=== PATIENT | female | born 1980 | race Caucasian/White ===

== ENCOUNTER 2016-11-29 21:37 | Emergency (ER) | payer OTHER ==
[~2016-11-29] VITALS: Ht 170.2 cm; Wt 73.6 kg
[~2016-11-29 21:37] MED LIST: ALPRAZOLAM0.25 M2; ATARAX,VISTARIL25 MG PO; ATARAX,VISTARIL50 MG PO; AZITHROMYCIN250 MG1 PO; BACTRIM,SEPT1 TABLET PO; BENTYL20 MG PO; BUSPAR10 MG; CARAFATE100 MG/ML PO; CIPRO500 MG PO; CITRATE OF MAG296 ML PO; CLEOCIN300 MG PO; CYCLOBENZAPR TAB 10M PO; DELTASONE20 M1 PO; DIAZEPAM10 MG PO; DICYCLOMINE HCL20 MG PO; DILAUDID2 MG PO; ENDOCET 5-3251 EACH PO; EPIPEN ADU0.3 MG/0.3 IM; EPIPEN IM; FLEXERIL10 MG PO; FLOMAX0.4 MG PO; FLUOXETINE HCL40 MG PO; HYDROCODON-ACE1 EAC8 PO; KLONOPIN1 MG PO; LAMICTAL100 MG PO; LAMICTAL150 M1 PO; LEVAQUIN500 MG PO; LEVOFLOXACIN500 MG PO; LIDODERM 5% P1 PATCH TD; LITHIUM; LITHIUM CARBON300 MG PO; MACROBID100 MG PO; MOTRIN600 MG PO; NAPROSYN500 MG PO; NOHOMEMEDS; OMEPRAZOLE40 M1 PO; PRAZOSIN HCL2 MG PO; PREMARIN0.3 MG PO; PRILOSEC40 MG PO; PROMETHAZINE HC25 M1 PO; PROZAC10 MG PO; PROZAC20 MG PO; Premarin PO; QUETIAPINE FUMA25 MG; RANITIDINE HCL150 MG PO; RYBIX ODT50 MG PO; SEROQUEL50 MG PO; TORADOL10 MG PO; VENTOLIN HFA18 GM IH; VICODIN ES 7.51 EAC1 PO; VICODIN,LORT1 TABLET PO; XANAX0.5 MG PO; XANAX1 MG PO; Xanax PO; ZANAFLEX4 M1 PO; ZANAFLEX4 MG PO; ZANTAC150 MG PO; ZOFRAN4 MG PO; [UNRECOGNIZED DRUG - OTHER] IM
[2016-11-29] MEDS ORDERED: PERCOCET 5/31 TABLET PO (22:48)
[2016-11-29] MEDS ORDERED: LAMICTAL100 MG PO (22:48)
[2016-11-29] MEDS ORDERED: VYVANSE40 MG PO (22:48)
[2016-11-29] MEDS ORDERED: TORADOL10 MG PO (23:35)
[2016-11-29] MEDS ORDERED: PROMETHAZINE HC25 M1 PO (23:35)
[2016-11-29 23:58] VITALS: BP 115/71
== END 2016-11-30 | disposition home or self-care (01) ==
LOC: EME 21:37
DX: S06.0X0A Concussion without loss of consciousness, initial encounter (principal); R11.0 Nausea; H53.149 Visual discomfort, unspecified; F17.200 Nicotine dependence, unspecified, uncomplicated; W22.09XA Striking against other stationary object, initial encounter
CPT/HCPCS: 99281; 99284; J2550

== ENCOUNTER 2017-10-07 15:35 | Observation (INO) | payer OTHER ==
[~2017-10-07] VITALS: Ht 170.2 cm; Wt 63.6 kg
[~2017-10-07 15:35] MED LIST changes: +PERCOCET 5/31 TABLET PO; +VYVANSE40 MG PO
[2017-10-07 16:06] LABS: HEMATOCRIT 38.9 % (36.0-46.0); MCH 31.3 PG (29.0-34.0); MCHC 34.7 G/DL (30.0-36.0); PLATELET COUNT 226 K/uL (156-360); RBC DIS.WIDTH-CV 11.7 % (11.8-14.6); RBC DIS.WIDTH-SD 38.4 % (39-53); RED BLOOD COUNT 4.32 M/uL (3.80-5.20); WHITE BLOOD COUNT 5.2 K/uL (4.1-10.2)
[2017-10-07 16:14] LABS: CHLORIDE 105 mEq/L (99-109); POTASSIUM 3.7 mEq/L (3.7-5.4); SODIUM 139 mEq/L (136-147)
[2017-10-07 16:15] LABS: GLUCOSE 70 mg/dL (70-99)
[2017-10-07 16:17] LABS: ANION GAP 8 MEQ/L (2-14)
[2017-10-07 16:19] LABS: GFR ESTIMATE (CALCULATED) 50 mL/min/
[2017-10-07 16:20] LABS: UREA NITROGEN (BUN) 16 mg/dL (9-23)
[2017-10-07 16:27] LABS: TROP-I INTERPRETATION NEGATIVE; TROPONIN-I < 0.01 ng/mL (0.0-0.30)
[2017-10-07 16:35] LABS: TOTAL BILIRUBIN 2.2 mg/dL (0.0-1.0)
[2017-10-07 16:36] LABS: ALKALINE PHOSPHATASE 96 IU/L (3-129)
[2017-10-07 16:39] LABS: DIRECT BILIRUBIN 0.6 mg/dL (0.0-0.3)
[2017-10-07 16:40] LABS: LIPASE 19 U/L (1.0-51.0)
[2017-10-07 16:54] LABS: D-DIMER ELISA < 150.00 ng/mLDDU (<230)
[2017-10-07] MEDS ORDERED: OXYCODONE HCL5 MG PO (21:18)
[2017-10-07] MEDS ORDERED: BUSPIRONE HCL7.5 MG PO (21:18)
[2017-10-07] MEDS ORDERED: VYVANSE60 MG PO (21:18)
[2017-10-07 22:56] VITALS: BP 107/61
[2017-10-07 23:05] LABS: TROP-I INTERPRETATION NEGATIVE; TROPONIN-I < 0.01 ng/mL (0.0-0.30)
[2017-10-08 03:38] VITALS: BP 119/53
[2017-10-08 04:46] LABS: BARBITUATES QUANT VALUE 0 NG/ML; BENZODIAZEPINES QUANT VALUE 0 NG/ML; BENZODIAZEPINES, URINE SCREEN Negative (200 ng/mL); MARIJUANA QUANT VALUE 0 NG/ML; PHENCYCLIDINE QUANT VALUE 0 NG/ML
[2017-10-08 05:38] LABS: HEMATOCRIT 37.1 % (36.0-46.0); MCHC 33.4 G/DL (30.0-36.0); MCV 92.8 FL (83-99); MEAN PLAT.VOLUME 11.5 uM^3 (9.5-12.4); PLATELET COUNT 188 K/uL (156-360); RBC DIS.WIDTH-CV 11.8 % (11.8-14.6); RBC DIS.WIDTH-SD 39.9 % (39-53)
[2017-10-08 05:42] LABS: INTER. NORMALIZED RATIO 1.1; PROTHROMBIN TIME 12.8 SEC (10.2-12.9)
[2017-10-08 05:48] LABS: TROP-I INTERPRETATION NEGATIVE; TROPONIN-I < 0.01 ng/mL (0.0-0.30)
[2017-10-08 06:03] LABS: ALKALINE PHOSPHATASE 94 IU/L (3-129); ANION GAP 6 MEQ/L (2-14); CHLORIDE 107 MEQ/L (99-109); GFR ESTIMATE (CALCULATED) > 59 mL/min/; HDL CHOLESTEROL 48 MG/DL (Desirable>=50); LDL CHOLESTEROL 57 mg/dL (Desirable<100); NON-HDL CHOLESTEROL 69 mg/dL (Desirable<160); SAMPLE HEMOLYSIS CHECK 0; SAMPLE ICTERIC CHECK 0; SAMPLE LIPEMIA CHECK 0; SODIUM 140 MEQ/L (136-147); TOTAL BILIRUBIN 1.7 MG/DL (0.0-1.0); TOTAL CHOLESTEROL 117 mg/dL (Desirable<200); TRIGLYCERIDES 60 MG/DL (Normal: <150); UREA NITROGEN (BUN) 16 mg/dL (9-23)
[2017-10-08 06:18] LABS: GLUCOSE 91 mg/dL (70-99)
[2017-10-08 07:27] VITALS: BP 108/73
[2017-10-08 11:00] VITALS: BP 105/56
[2017-10-08 11:49] LABS: HBSG INDEX 0.18
[2017-10-08 11:50] LABS: ANTI-HEPATITIS A VIRUS (IGM) Nonreactive; HAV INDEX 0.23; HPCA INDEX 0.12
[2017-10-08 11:51] LABS: ANTI-HEPATITIS B CORE (IGM) Nonreactive; HBC IgM INDEX 0.09
== END 2017-10-08 11:43 | disposition home or self-care (01) ==
LOC: EME 15:35 → EDOF 21:46 → 5WEST 21:46 → EDOF 21:46 → ENRESERV 21:50 → 5WEST 22:50
PROVIDERS: Emergency Medicine; Physician Assistant
DX: R07.9 Chest pain, unspecified (principal); R17 Unspecified jaundice; G89.4 Chronic pain syndrome; F41.9 Anxiety disorder, unspecified; N28.9 Disorder of kidney and ureter, unspecified; F17.210 Nicotine dependence, cigarettes, uncomplicated; Z79.891 Long term (current) use of opiate analgesic; F11.11 Opioid abuse, in remission; F10.11 Alcohol abuse, in remission; F14.11 Cocaine abuse, in remission; Z90.49 Acquired absence of other specified parts of digestive tract; Z87.442 Personal history of urinary calculi; Z79.82 Long term (current) use of aspirin; Z82.49 Family history of ischemic heart disease and other diseases of the circulatory system; M79.7 Fibromyalgia; E53.8 Deficiency of other specified B group vitamins; F32.9 Major depressive disorder, single episode, unspecified; Z83.3 Family history of diabetes mellitus; Z83.49 Family history of other endocrine, nutritional and metabolic diseases
CPT/HCPCS: 71020; 76705; 80048; 80053; 80061; 80074; 80076; 80306 90; 82607; 82746; 83690; 84443; 84484; 85027; 85379; 85610; 93005; 99281; 99285; G0378; J1650; J2270; J3010; J7030

== ENCOUNTER 2018-03-24 22:21 | Emergency (ER) | payer OTHER ==
[~2018-03-24] VITALS: Ht 170.2 cm; Wt 62.0 kg
[~2018-03-24 22:21] MED LIST changes: +BUSPIRONE HCL7.5 MG PO; +OXYCODONE HCL5 MG PO; +VYVANSE60 MG PO
[2018-03-24] MEDS ORDERED: MOTRIN800 MG PO (22:50)
[2018-03-24 23:17] VITALS: BP 127/71
== END 2018-03-24 23:18 | disposition home or self-care (01) ==
LOC: EXP 22:21 → EME 22:21 → EXP 23:18
DX: S63.502A Unspecified sprain of left wrist, initial encounter (principal); W01.0XXA Fall on same level from slipping, tripping and stumbling without subsequent striking against object, initial encounter; Y93.01 Activity, walking, marching and hiking; Y92.512 Supermarket, store or market as the place of occurrence of the external cause; F17.200 Nicotine dependence, unspecified, uncomplicated; Z91.018 Allergy to other foods
CPT/HCPCS: 73110; 99281; 99284

== ENCOUNTER 2018-05-10 11:05 | Emergency (ER) | payer OTHER ==
[~2018-05-10] VITALS: Ht 170.2 cm; Wt 62.9 kg
[~2018-05-10 11:05] MED LIST changes: +MOTRIN800 MG PO
[2018-05-10 11:24] LABS: APPEARANCE CLEAR ((CLEAR)); BILIRUBIN NEGATIVE; BLOOD NEGATIVE; COLOR YELLOW ((YELLOW)); GLUCOSE (STRIP) NEGATIVE; KETONES NEGATIVE; LEUKOCYTES NEGATIVE; NITRITE NEGATIVE; PROTEIN (STRIP) NEGATIVE; SPECIFIC GRAVITY 1.014 (1.000-1.030); UCUL ADDED? NO; UROBILINOGEN 0.2 MG/DL (0.2-1.0)
[2018-05-10 11:36] LABS: HEMOGLOBIN 13.2 G/DL (11.9-15.5); MCH 31.7 PG (29.0-34.0); MCHC 34.7 G/DL (30.0-36.0); MCV 91.3 FL (83-99); PLATELET COUNT 228 K/uL (156-360); RBC DIS.WIDTH-CV 11.8 % (11.8-14.6); RBC DIS.WIDTH-SD 39.7 % (39-53); RED BLOOD COUNT 4.16 M/uL (3.80-5.20); WHITE BLOOD COUNT 5.6 K/uL (4.1-10.2)
[2018-05-10 11:56] LABS: CHLORIDE 107 mEq/L (99-109); POTASSIUM 4.4 mEq/L (3.7-5.4); SODIUM 141 mEq/L (136-147)
[2018-05-10 11:58] LABS: GLUCOSE 90 mg/dL (70-99)
[2018-05-10 12:01] LABS: GFR ESTIMATE (CALCULATED) > 59 mL/min/
[2018-05-10 12:02] LABS: UREA NITROGEN (BUN) 12 mg/dL (9-23)
[2018-05-10 12:18] LABS: ALBUMIN 4.3 g/dL (3.2-4.8)
[2018-05-10 12:21] LABS: TOTAL PROTEIN 6.4 g/dL (6.4-8.3)
[2018-05-10 12:23] LABS: TOTAL BILIRUBIN 1.2 mg/dL (0.0-1.0)
[2018-05-10 12:24] LABS: ALKALINE PHOSPHATASE 87 IU/L (3-129)
[2018-05-10 12:27] LABS: ALT (GPT) 13 IU/L (3-49); AST (GOT) 16 IU/L (2-34); DIRECT BILIRUBIN 0.4 mg/dL (0.0-0.3)
[2018-05-10 12:28] LABS: LIPASE 42 U/L (1.0-51.0)
[2018-05-10 12:34] LABS: QUANTITATIVE HCG < 4.0 MIU/ML
[2018-05-10] MEDS ORDERED: MOTRIN800 MG PO (12:50)
[2018-05-10] MEDS ORDERED: PERCOCET 5/31 TABLET PO (12:50)
[2018-05-10] MEDS ORDERED: FLOMAX0.4 MG PO (12:50)
[2018-05-10 13:15] VITALS: BP 104/75
== END 2018-05-10 13:15 | disposition home or self-care (01) ==
LOC: EME 11:05
DX: N20.1 Calculus of ureter (principal); G89.29 Other chronic pain; M54.5 Low back pain; Z87.442 Personal history of urinary calculi; F32.9 Major depressive disorder, single episode, unspecified; M79.7 Fibromyalgia; F41.9 Anxiety disorder, unspecified; Z90.710 Acquired absence of both cervix and uterus; Z90.49 Acquired absence of other specified parts of digestive tract; F17.200 Nicotine dependence, unspecified, uncomplicated
CPT/HCPCS: 74018; 80048; 80076; 81003; 83690; 84702; 85027; 99281; 99285